=== PATIENT | female | born 1940 | race Caucasian/White ===

== ENCOUNTER 2017-02-10 11:26 | Day surgery (SDC) | payer OTHER ==
--- NOTE | ~2017-02-10 | OP ---
Record Of Operation [facility] [address] [place]. [address] NAME: KAREEM COATS : 44 STATUS : [facility] UNIT#: [id number] AGE: 76 ADM/REG DATE : 02/10/17 MR#: [id number] REPORT SERV DATE: 02/11/17 DICTATED BY: MALCOLM REYES II DATE: 02/10/17 REPORT STATUS : Draft TRANSCRIBED BY: MARY KATE DATE: 02/10/17 DATE OF PROCEDURE: 02/10/2017 ATTENDING CO-SURGEON: Malcolm Reyes M.D. ORCHID HAND: Roxi hutton. PREOPERATIVE DIAGNOSIS: Chronic renal failure. POSTOPERATIVE DIAGNOSIS: Chronic renal failure. PROCEDURES: Creation of left upper extremity [id number] non-transposed arteriovenous fistula. ANESTHESIA: General. IV FLUIDS: 400 mL. ESTIMATED BLOOD LOSS: 25 mL. FINDINGS OF SURGERY: The patient did not have any real usable cephalic vein. The basilic vein was measuring 3.5 mm at the elbow. DETAILS OF PROCEDURE: The patient was taken to the operating room and placed in supine on table. Left arm was prepped and draped and sedation was achieved. Local anesthesia was infiltrated. I made an incision over the basilic vein and the brachial artery and exposed the brachial artery without difficulty. It did appear there may be a possibly an early bifurcation; however, this was a dominant brachial artery that we dissected. We then exposed the basilic vein which measured again over 3 mm. We mobilized the vein proximally and distally. There were several branches that were ligated with 3-0 silk. I elected to proceed with ypfs-ro-arox anastomosis between the brachial artery and basilic vein. We made a longitudinal venotomy and longitudinal arteriotomy and performed a fpxy-ar-jjyh anastomosis between the brachial artery and basilic vein using a running 6-0 Prolene. Prior to complete closure, we flushed. We then released the clamps. There was a good thrill with bidirectional flow within the basilic vein. The anastomosis was hemostatic. We thoroughly irrigated and closed with 3-0 Vicryl and closed the skin with Monocryl. At the end of procedure, the patient is stable and tolerated well. ABHISHEK/MARY KATE Malcolm Reyes II, M.D. / [id number] Record Of Operation [place] [address] [address] NAME: KAREEM COATS : 44 STATUS : [facility] PAT#: [id number] AGE: 76 ADM/REG DATE : 02/10/17 MR#: [id number] REPORT SERV DATE: 02/11/17 DICTATED BY: MALCOLM REYES II DATE: 02/10/17 REPORT STATUS : Draft TRANSCRIBED BY: MARY KATE DATE: 02/10/17 CC: Benja Xavier II, M.D.
[~2017-02-10 11:26] MED LIST: ACET500CAP PO; ALEVE220 MG PO; ASAB PO; DITRO5 PO; LEVAQUIN5T PO; MELA3 PO; MIRALAXPKT PO; NORCO1 TA1 PO; SODBICAR10 PO; T PO; TYLENOL ARTH650 MG PO; ULTRAM50 PO
[2017-02-10 12:20] LABS: BASOPHILS 0.8 %; BASOPHILS ABSOLUTE 0.03 10/3/uL (0.0-0.16); EOSINOPHILS 4.6 %; EOSINOPHILS ABSOLUTE 0.18 10/3/uL (0.0-0.53); HEMOGLOBIN 10.2 g/dL (12.0-16.0); IMMATURE GRANULOCYTES 0.3 %; IMMATURE GRANULOCYTES ABSOLUTE 0.01 10/3/uL (0.0-0.11); LYMPHOCYTES 32.5 %; LYMPHOCYTES ABSOLUTE 1.26 10/3/uL (0.67-4.30); MEAN CORPUS HGB CONC 32.4 g/dL (32.0-36.0); MEAN CORPUSCULAR HEMOGLOB 32.1 pg (26.0-34.0); MEAN CORPUSCULAR VOLUME 99.1 fL (80-100); MEAN PLATELET VOLUME 9.8 fL (9.2-13.0); MONOCYTES 8.8 %; MONOCYTES ABSOLUTE 0.34 10/3/uL (0.21-1.20); NEUTROPHILS ABSOLUTE 2.06 10/3/uL (2.02-8.40); RED CELL COUNT 3.18 10/6/uL (4.0-5.6); WHITE BLOOD CELLS 3.9 10/3/uL (4.5-10.5)
[2017-02-10 12:21] LABS: HEMATOCRIT 31.5 % (36.0-48.0); MANUAL DIFF NO %; PLATELET COUNT 83 10/3/uL (150-400)
[2017-02-10 12:41] LABS: CALCIUM, SERUM 9.2 MG/DL (8.5-10.4); CHLORIDE, SERUM 102 MMOL/L (96-112); SODIUM, SERUM 136 MMOL/L (135-148)
[2017-02-10 12:42] LABS: BUN (BLOOD UREA NITROGEN) 33 MG/DL (6-23); CO2 (CARBON DIOXIDE) 30 MMOL/L (24-34); CREATININE 4.26 MG/DL (0.55-1.02); GFR AFRICAN AMERICAN 11 ML/MIN (>=60); GFR NON AFRICAN AMERICAN 10 ML/MIN (>=60); GLUCOSE, SERUM 82 MG/DL (60-99); POTASSIUM, SERUM 4.4 MMOL/L (3.5-5.3)
== END 2017-02-10 17:11 | disposition home or self-care (01) ==
LOC: SDC 11:26
PROVIDERS: Surgery
DX: N18.6 End stage renal disease (principal); D64.9 Anemia, unspecified; M19.90 Unspecified osteoarthritis, unspecified site; Z88.1 Allergy status to other antibiotic agents; Z90.89 Acquired absence of other organs
CPT/HCPCS: 71010; 80048; 85025; 93005; J0690; J2370; J3010